=== PATIENT | male | born 1980 | race Caucasian/White ===

== ENCOUNTER 2017-12-05 11:32 | Day surgery (SDC) | payer SELFPAY ==
[2017-12-05 12:01] VITALS: BMI 21.9
[2017-12-05] MEDS ORDERED: LIDOCAINE 1%/EPI 1:100000 (20 ML MULTI DOSE VIAL) ONE (12:32)
[2017-12-05] MEDS ORDERED: OXYMETAZOLINE 0.05% NASAL SOLUTION 15 ML BOTTLE NS ONE (12:32)
[2017-12-05] MEDS ORDERED: MIDAZOLAM HCL 2 MG/2 ML SINGLE DOSE VIAL ONE (12:40)
[2017-12-05] MEDS ORDERED: ONDANSETRON 4 MG/2 ML VIAL ONE ×2 (12:49→13:46)
[2017-12-05] MEDS ORDERED: DEXAMETHASONE SOD PHOSPHATE 4 MG/1 ML VIAL ONE ×2 (12:49→13:46)
[2017-12-05] MEDS ORDERED: LIDOCAINE HCL/PF 2% SDV 5ML VIAL ONE (12:49)
[2017-12-05] MEDS ORDERED: PROPOFOL 20 ML ONE (12:51)
[2017-12-05] MEDS ORDERED: ROCURONIUM BROMIDE 50 MG/5 ML VIAL ONE (12:52)
[2017-12-05] MEDS ORDERED: ceFAZolin SODIUM 1 GM VIAL ONE (13:02)
[2017-12-05] MEDS ORDERED: LIDOCAINE 1%/EPI 1:100000 (50 ML MULTI DOSE VIAL) INF ONE (13:07)
[2017-12-05] MEDS ORDERED: NEOSTIGMINE METHYLSULFATE 0.5 MG/ML - 10 ML MDV ONE (13:45)
[2017-12-05] MEDS ORDERED: GLYCOPYRROLATE 0.2 MG/1 ML VIAL ONE (13:45)
[2017-12-05] MEDS ORDERED: oxyCODONE HCL 5 MG TABLET PO PRN ×3 (14:13→14:18)
[2017-12-05] MEDS ORDERED: LACTATED RINGERS SOLUTION 1,000 ML IV SCH ×2 (14:15→14:30)
[2017-12-05] MEDS ORDERED: ONDANSETRON 4 MG/2 ML VIAL IVPB PRN (14:18)
--- NOTE | 2017-12-05 14:25 | OP ---
Operative Note - Note: Operative Date: 12/05/17 Pre-Operative Diagnosis: nasal fracture Operation: closed reduction of nasal fracture Findings: above Post-Operative Diagnosis: Same as Pre-op Surgeon: Ernesto Valera Anesthesia: General Operative Report Dictated: Yes
[2017-12-05] MEDS ORDERED: oxyCODONE HCL 5 MG TABLET ONE (15:42)
[2017-12-05 16:36] VITALS: TEMP 98.1
[2017-12-05 18:12] VITALS: BP 116/71; PULSE 69
--- NOTE | 2017-12-06 08:12 | OP ---
DATE OF OPERATION: 12/05/2017 TITLE OF PROCEDURE: Open reduction of nasal fracture with medial and lateral osteotomies. ATTENDING SURGEON: Ernesto Lennon MD GM MOBILE: There were no assistants. ANESTHESIA: A total of 9 mL of 1% lidocaine with 1:100,000 epinephrine injected preoperatively to the operative sites as well as general anesthesia. DESCRIPTION OF PROCEDURE: The patient was marked in the holding area, awake and aware of the procedure. He understood and agreed to proceed. The patient was also counseled on all risks, benefits, and alternatives to the procedure, and he agreed to proceed. He was brought to the operating room and placed in a supine position. After induction of general anesthesia, a throat packing was placed and removed at the end of the procedure. The local anesthetic was injected as described. A time-out was called. Patient, procedure, side and sites were verified. The bilateral intercartilaginous incisions were then made connected to a dorsal dissection, over which a very gentle dorsal grasping of a residual dorsal hump was performed with a 3 Fomon rasp. After which, bilateral medial osteotomies were performed with a straight single-guarded 3-mm osteotome. Then, bilateral pyriform aperture incisions were made, which were then used to dissect to the lateral borders of the fracture lines along the nasal bones. These fracture planes were identified, and a 4-mm single-guarded straight osteotome was used to recreate the fracture planes. They were able to be mobilized using a Rodriguez jelani until a midline position was achieved. At this point, the fractures were able to be stabilized with a Jermaine splint, which was applied routinely. Mustache dressing was applied. Patient was awoken from anesthesia. He tolerated the procedure well ERNESTO LENNON M.D. [id number]
== END 2017-12-05 18:44 | disposition home or self-care (01) ==
LOC: FASU 11:32
PROVIDERS: ATTEND Plastic Surgery
PROC: 0NB Head and Facial Bones, Excision (ICD-10-PCS; 2017-12-05)
PROC: 0NSB0ZZ Reposition Nasal Bone, Open Approach (ICD-10-PCS; principal; 2017-12-05 12:30)
DX: S02.2XXA Fracture of nasal bones, initial encounter for closed fracture (principal); X58.XXXA Exposure to other specified factors, initial encounter; Y93.9 Activity, unspecified; Y92.9 Unspecified place or not applicable
CPT/HCPCS: 94760